=== PATIENT | female | born 1960 | race Caucasian/White ===

== ENCOUNTER 2019-09-14 15:29 | Outpatient (CLI) | payer MEDICARE, MEDICAID, SELFPAY ==
[2019-09-14 18:59] LABS: Thyroid Stimulating Hormone 2.96 uIU/mL (0.27-4.20)
== END 2019-09-14 15:30 | disposition home or self-care (01) ==
LOC: LAB 15:38
PROVIDERS: Family Provider Internal Medicine; PCP Internal Medicine; Visit Provider Internal Medicine
DX: E03.9 Hypothyroidism, unspecified (principal)
CPT/HCPCS: 36415; 84443

== ENCOUNTER → 2019-09-29 09:55 | Outpatient (BNVA) | payer MEDICARE, MEDICAID, SELFPAY | PROVIDERS: Family Provider Internal Medicine; PCP Internal Medicine; Visit Provider Nurse Practitioner Psychiatric/Mental Health | DX: F41.1 Generalized anxiety disorder (principal); F33.1 Major depressive disorder, recurrent, moderate; F43.12 Post-traumatic stress disorder, chronic; F60.89 Other specific personality disorders | CPT/HCPCS: 99214 ==

== ENCOUNTER → 2019-11-07 08:45 | Outpatient (BNVA) | payer MEDICARE, MEDICAID, SELFPAY | PROVIDERS: Family Provider Internal Medicine; PCP Internal Medicine; Visit Provider Nurse Practitioner Psychiatric/Mental Health | DX: F41.1 Generalized anxiety disorder (principal); F33.1 Major depressive disorder, recurrent, moderate; F43.12 Post-traumatic stress disorder, chronic; F60.89 Other specific personality disorders | CPT/HCPCS: 99214 ==

== ENCOUNTER → 2019-11-29 12:06 | Outpatient (BNVA) | payer MEDICARE, MEDICAID, SELFPAY | PROVIDERS: Family Provider Internal Medicine; PCP Internal Medicine; Visit Provider Family Medicine | DX: R05 Cough (principal); R06.02 Shortness of breath; R50.81 Fever presenting with conditions classified elsewhere; Z20.828 Contact with and (suspected) exposure to other viral communicable diseases; R68.89 Other general symptoms and signs | CPT/HCPCS: 87071; 87400; 87635; 87880 ==

== ENCOUNTER → 2020-01-03 07:43 | Outpatient (BNVA) | payer MEDICARE, MEDICAID, SELFPAY | PROVIDERS: Family Provider Internal Medicine; PCP Internal Medicine; Visit Provider Nurse Practitioner Psychiatric/Mental Health | DX: F41.1 Generalized anxiety disorder (principal); F33.1 Major depressive disorder, recurrent, moderate; F43.12 Post-traumatic stress disorder, chronic; F60.89 Other specific personality disorders | CPT/HCPCS: 99213 ==

== ENCOUNTER → 2020-04-03 08:21 | Outpatient (BNVA) | payer MEDICARE, MEDICAID, SELFPAY | PROVIDERS: Family Provider Internal Medicine; PCP Internal Medicine; Visit Provider Nurse Practitioner Psychiatric/Mental Health | DX: F41.1 Generalized anxiety disorder (principal); F33.1 Major depressive disorder, recurrent, moderate; F43.12 Post-traumatic stress disorder, chronic; F60.89 Other specific personality disorders | CPT/HCPCS: 99213 ==

== ENCOUNTER → 2020-06-26 07:49 | Outpatient (BNVA) | payer MEDICARE, MEDICAID, SELFPAY | PROVIDERS: Family Provider Internal Medicine; PCP Internal Medicine; Visit Provider Nurse Practitioner Psychiatric/Mental Health | DX: F41.1 Generalized anxiety disorder (principal); F33.1 Major depressive disorder, recurrent, moderate; F43.12 Post-traumatic stress disorder, chronic; F60.89 Other specific personality disorders | CPT/HCPCS: 87635; 99214 ==

== ENCOUNTER → 2020-06-30 15:11 | Outpatient (BNVA) | payer MEDICARE, MEDICAID, SELFPAY | PROVIDERS: Family Provider Internal Medicine; PCP Internal Medicine; Visit Provider Nurse Practitioner | DX: J20.9 Acute bronchitis, unspecified (principal) | CPT/HCPCS: 71046; 87071; 87880 ==

== ENCOUNTER → 2020-07-02 10:35 | Outpatient (BNVA) | payer MEDICARE, MEDICAID, SELFPAY | PROVIDERS: Family Provider Internal Medicine; PCP Internal Medicine; Visit Provider Family Medicine | DX: E03.9 Hypothyroidism, unspecified (principal); F41.1 Generalized anxiety disorder; Z13.6 Encounter for screening for cardiovascular disorders; Z79.899 Other long term (current) drug therapy | CPT/HCPCS: 80053; 80061; 83036; 84443; 85025 ==

== ENCOUNTER → 2020-07-24 08:00 | Outpatient (BNVA) | payer MEDICARE, MEDICAID, SELFPAY ==
[2020-07-03 14:30] VITALS: BP 121/83; BMI 33.6
== END ==
PROVIDERS: Family Provider Internal Medicine; PCP Family Medicine; Visit Provider Nurse Practitioner Psychiatric/Mental Health
DX: F41.1 Generalized anxiety disorder (principal); F33.1 Major depressive disorder, recurrent, moderate; F43.12 Post-traumatic stress disorder, chronic; F60.89 Other specific personality disorders
CPT/HCPCS: 99213

== ENCOUNTER → 2020-08-15 11:39 | Outpatient (BNVA) | payer MEDICARE, MEDICAID, SELFPAY ==
[2020-07-03 14:30] VITALS: BP 121/83; BMI 33.6
== END ==
PROVIDERS: Family Provider Internal Medicine; PCP Family Medicine; Visit Provider Family Medicine
DX: E03.9 Hypothyroidism, unspecified (principal); G47.10 Hypersomnia, unspecified
CPT/HCPCS: 84443

== ENCOUNTER 2020-08-28 20:00 | Outpatient (CLI) | payer MEDICARE, MEDICAID, SELFPAY ==
[2020-07-03 14:30] VITALS: BP 121/83; BMI 33.6
== END 2020-08-28 20:01 | disposition home or self-care (01) ==
LOC: SLEEP 08-29 10:09
PROVIDERS: Family Provider Internal Medicine; PCP Family Medicine; Visit Provider Family Medicine
DX: G47.10 Hypersomnia, unspecified (principal); R06.83 Snoring; R53.83 Other fatigue; G47.33 Obstructive sleep apnea (adult) (pediatric)
CPT/HCPCS: 95810

== ENCOUNTER → 2020-09-04 08:07 | Outpatient (BNVA) | payer MEDICARE, MEDICAID, SELFPAY ==
[2020-07-03 14:30] VITALS: BP 121/83; BMI 33.6
== END ==
PROVIDERS: Family Provider Internal Medicine; PCP Family Medicine; Visit Provider Nurse Practitioner Psychiatric/Mental Health
DX: F41.1 Generalized anxiety disorder (principal); F33.1 Major depressive disorder, recurrent, moderate; F43.12 Post-traumatic stress disorder, chronic; F60.89 Other specific personality disorders
CPT/HCPCS: 99213

== ENCOUNTER 2020-09-24 13:14 | Outpatient (CLI) | payer MEDICARE, MEDICAID, SELFPAY ==
[2020-07-03 14:30] VITALS: BP 121/83; BMI 33.6
--- NOTE | 2020-09-24 13:30 | MM_ITS ---
WS: [id number] SCREENING DIGITAL MAMMOGRAM WITH CAD HISTORY: screening mammogram COMPARISON: 04/19/2008 Bilateral CC and MLO views submitted. Computer aided detection analyzed. Breast composition: There are scattered areas of fibroglandular density. No suspicious masses, microc alcifications or architectural distortion. MM/[place] [id number] IMPRESSION: BI-RADS: 1-Negative FOLLOW UP: 1 Year Follow-up
== END 2020-09-24 13:15 | disposition home or self-care (01) ==
LOC: RADSHAW 13:17
PROVIDERS: PCP Family Medicine; Visit Provider Family Medicine
DX: Z12.31 Encounter for screening mammogram for malignant neoplasm of breast (principal)
CPT/HCPCS: 77067

== ENCOUNTER → 2020-10-30 07:54 | Outpatient (BNVA) | payer MEDICARE, MEDICAID, SELFPAY ==
[2020-07-03 14:30] VITALS: BP 121/83; BMI 33.6
== END ==
PROVIDERS: PCP Family Medicine; Visit Provider Nurse Practitioner Psychiatric/Mental Health
DX: F41.1 Generalized anxiety disorder (principal); F33.1 Major depressive disorder, recurrent, moderate; F43.12 Post-traumatic stress disorder, chronic; F60.89 Other specific personality disorders
CPT/HCPCS: 99214

== ENCOUNTER → 2020-11-07 11:35 | Outpatient (BNVA) | payer MEDICARE, SELFPAY ==
[2020-07-03 14:30] VITALS: BP 121/83; BMI 33.6
== END ==
PROVIDERS: PCP Family Medicine; Visit Provider Family Medicine
DX: E03.9 Hypothyroidism, unspecified (principal); H81.10 Benign paroxysmal vertigo, unspecified ear; G47.33 Obstructive sleep apnea (adult) (pediatric)
CPT/HCPCS: 84439; 84443

== ENCOUNTER 2020-11-29 20:00 | Outpatient (CLI) | payer MEDICARE, MEDICAID, SELFPAY ==
[2020-07-03 14:30] VITALS: BP 121/83; BMI 33.6
== END 2020-11-29 20:01 | disposition home or self-care (01) ==
LOC: SLEEP 11-30 09:31
PROVIDERS: PCP Family Medicine; Visit Provider Family Medicine
DX: G47.33 Obstructive sleep apnea (adult) (pediatric) (principal)
CPT/HCPCS: 95811

== ENCOUNTER → 2021-01-08 08:24 | Outpatient (BNVA) | payer MEDICARE, MEDICAID, SELFPAY ==
[2020-07-03 14:30] VITALS: BP 121/83; BMI 33.6
== END ==
PROVIDERS: PCP Family Medicine; Visit Provider Nurse Practitioner Psychiatric/Mental Health
DX: F41.1 Generalized anxiety disorder (principal); F33.1 Major depressive disorder, recurrent, moderate; F43.12 Post-traumatic stress disorder, chronic; F60.89 Other specific personality disorders
CPT/HCPCS: 99214

== ENCOUNTER → 2021-01-30 07:56 | Outpatient (BNVA) | payer MEDICARE, MEDICAID, SELFPAY ==
[2020-07-03 14:30] VITALS: BP 121/83; BMI 33.6
== END ==
PROVIDERS: PCP Family Medicine; Visit Provider Social Worker
DX: F41.1 Generalized anxiety disorder (principal); F33.1 Major depressive disorder, recurrent, moderate; F43.12 Post-traumatic stress disorder, chronic; F60.89 Other specific personality disorders
CPT/HCPCS: 90834

== ENCOUNTER → 2021-02-11 13:00 | Outpatient (BNVA) | payer MEDICARE, MEDICAID, SELFPAY ==
[2020-07-03 14:30] VITALS: BP 121/83; BMI 33.6
== END ==
PROVIDERS: PCP Family Medicine; Visit Provider Social Worker
DX: F41.1 Generalized anxiety disorder (principal); F33.1 Major depressive disorder, recurrent, moderate; F43.12 Post-traumatic stress disorder, chronic; F60.89 Other specific personality disorders
CPT/HCPCS: 90834

== ENCOUNTER → 2021-02-12 07:35 | Outpatient (BNVA) | payer MEDICARE, MEDICAID, SELFPAY ==
[2020-07-03 14:30] VITALS: BP 121/83; BMI 33.6
== END ==
PROVIDERS: PCP Family Medicine; Visit Provider Nurse Practitioner Psychiatric/Mental Health
DX: E03.9 Hypothyroidism, unspecified (principal); F60.89 Other specific personality disorders; F41.1 Generalized anxiety disorder; F33.1 Major depressive disorder, recurrent, moderate; F43.12 Post-traumatic stress disorder, chronic
CPT/HCPCS: 99214; 84439; 84443

== ENCOUNTER → 2021-02-18 12:37 | Outpatient (BNVA) | payer MEDICARE, MEDICAID, SELFPAY ==
[2020-07-03 14:30] VITALS: BP 121/83; BMI 33.6
== END ==
PROVIDERS: PCP Family Medicine; Visit Provider Social Worker
DX: F41.1 Generalized anxiety disorder (principal); F33.1 Major depressive disorder, recurrent, moderate; F43.12 Post-traumatic stress disorder, chronic; F60.89 Other specific personality disorders
CPT/HCPCS: 90834

== ENCOUNTER → 2021-03-04 08:33 | Outpatient (BNVA) | payer MEDICARE, MEDICAID, SELFPAY ==
[2020-07-03 14:30] VITALS: BP 121/83; BMI 33.6
== END ==
PROVIDERS: PCP Family Medicine; Visit Provider Social Worker
DX: F41.1 Generalized anxiety disorder (principal); F33.1 Major depressive disorder, recurrent, moderate; F43.12 Post-traumatic stress disorder, chronic; F60.89 Other specific personality disorders
CPT/HCPCS: 90834

== ENCOUNTER → 2021-03-13 14:00 | Outpatient (BNVA) | payer MEDICARE, MEDICAID, SELFPAY ==
[2020-07-03 14:30] VITALS: BP 121/83; BMI 33.6
== END ==
PROVIDERS: PCP Family Medicine; Visit Provider Social Worker
DX: F41.1 Generalized anxiety disorder (principal); F33.1 Major depressive disorder, recurrent, moderate; F43.12 Post-traumatic stress disorder, chronic
CPT/HCPCS: 90834

== ENCOUNTER → 2021-03-19 07:24 | Outpatient (BNVA) | payer MEDICARE, MEDICAID, SELFPAY ==
[2020-07-03 14:30] VITALS: BP 121/83; BMI 33.6
== END ==
PROVIDERS: PCP Family Medicine; Visit Provider Nurse Practitioner Psychiatric/Mental Health
DX: F41.1 Generalized anxiety disorder (principal); F33.1 Major depressive disorder, recurrent, moderate; F43.12 Post-traumatic stress disorder, chronic; F60.89 Other specific personality disorders
CPT/HCPCS: 99214

== ENCOUNTER → 2021-04-04 13:50 | Outpatient (BNVA) | payer MEDICARE, MEDICAID, SELFPAY ==
[2020-07-03 14:30] VITALS: BP 121/83; BMI 33.6
== END ==
PROVIDERS: PCP Family Medicine; Visit Provider Family Medicine
DX: E03.9 Hypothyroidism, unspecified (principal); N95.1 Menopausal and female climacteric states
CPT/HCPCS: 84439; 84443

== ENCOUNTER → 2021-04-17 08:56 | Outpatient (BNVA) | payer MEDICARE, MEDICAID, SELFPAY ==
[2020-07-03 14:30] VITALS: BP 121/83; BMI 33.6
== END ==
PROVIDERS: PCP Family Medicine; Visit Provider Social Worker
DX: F41.1 Generalized anxiety disorder (principal); F33.1 Major depressive disorder, recurrent, moderate; F43.12 Post-traumatic stress disorder, chronic; F60.89 Other specific personality disorders
CPT/HCPCS: 90834

== ENCOUNTER → 2021-04-22 12:50 | Outpatient (BNVA) | payer MEDICARE, MEDICAID, SELFPAY ==
[2020-07-03 14:30] VITALS: BP 121/83; BMI 33.6
== END ==
PROVIDERS: PCP Family Medicine; Visit Provider Social Worker
DX: F41.1 Generalized anxiety disorder (principal); F33.1 Major depressive disorder, recurrent, moderate; F43.12 Post-traumatic stress disorder, chronic; F60.89 Other specific personality disorders
CPT/HCPCS: 90834

== ENCOUNTER → 2021-05-08 08:55 | Outpatient (BNVA) | payer MEDICARE, MEDICAID, SELFPAY ==
[2020-07-03 14:30] VITALS: BP 121/83; BMI 33.6
== END ==
PROVIDERS: PCP Family Medicine; Visit Provider Social Worker
DX: F41.1 Generalized anxiety disorder (principal); F33.1 Major depressive disorder, recurrent, moderate; F43.12 Post-traumatic stress disorder, chronic; F60.89 Other specific personality disorders
CPT/HCPCS: 90834

== ENCOUNTER 2021-06-19 11:09 | Emergency (ER) | payer MEDICARE, MEDICAID, SELFPAY ==
[2020-07-03 14:30] VITALS: BP 121/83; BMI 33.6
[2021-06-19 11:15] VITALS: BP 136/78; PULSE 94; RESP 18; TEMP 36.1; O2SAT 96; BMI 34.7
--- NOTE | 2021-06-19 11:24 | XR_ITS ---
WS: [id number] Exam: XR chest 1V portable [id number] Date/Time of Exam: 06/19/2021 11:48 AM Reason For Exam: dyspnea Comparison 06/30/2020. Findings: The lungs are clear and fully expanded. Costophrenic angles are sharp. No infiltrates. Bronchovascula r relief appears normal. Cardiac silhouette is unremarkable. Bony elements are intact. XR/XR chest 1V portable [id number] IMPRESSION: Unremarkable chest radiograph.
--- NOTE | 2021-06-19 11:24 | ECG_ITS ---
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 Measurements Intervals [place] Rate: 89 P: 28 RI: 138 QRS: -18 QRSD: 84 T: 50 QT: 358 QTc: 438 Interpretive Statements SINUS RHYTHM LOW QRS VOLTAGE IN PRECORDIAL LEADS [QRS DEFLECTION < 1.0 mV IN CHEST LEADS] POSSIBLE ANTERIOR MYOCARDIAL INFARCTION , PROBABLY OLD [30 ms Q WAVE IN V3/V4, OR R < 0.2 mV IN V4] Compared to ECG 06/18/2018 13:32:04 Low QRS voltage now present Myocardial infarct finding now present Sinus arrhythmia no longer present Electronically Signed On 06-20-2021 1:24:27 CDT by Rebecca Price M.D. [id number]
--- NOTE | 2021-06-19 11:47 | W.ED.GENADLT ---
HPI - General Adult General: Chief complaint: Chest Pain Stated complaint: CHEST PRESSURE,RAPID HR,WEAK,SOB,PAIN L NECK/ARM Time Seen by Provider: 06/19/21 11:23 History of Present Illness: HPI narrative: CC: Chest Pain HPI: This is a 61yo patient hx of PTD, ЮЛИЯ, and depression presenting to the ED complaining of acute sudden onset intermittent squeezing chest pain since 5am this morning WITHOUT radiation to the back or shoulders . No associated with shortness of breath, chest pain or dyspnea on exertion. Pain is not tearing in nature and does not radiate to the back. Pain not associated with vomiting or PO intake. Denies any recent sympathomimetic drug use. Patient denies any cough. Denies palpitations, dysphagia, diaphoresis, radiation of pain to bilateral arms, jaw. Denies F/N/V/D. Patient denies any recent immobility, surgery, unilateral leg swelling, or prior PE. Patient denies any orthopnea. Hx of prior PE in the past, +mild pleurtiic chest pain. Onset: 5 hrs ago Duration: ongoing for the last 5 hrs Location: home Severity: mild/moderate Review of Systems Narrative: Constitutional: No fever, no chills. HEENT: No vision changes, no sore throat. CV: +chest pain, no palpitations. PULM: No cough, No dyspnea. GI: No abdominal pain, no N/V/D. : No dysuria, no frequency, no hematuria. MSKEL: No arthralgias, no edema. SKIN: No new rashes, no lesions. NEURO: No headache, no focal weakness. HEME: No easy bleeding or bruising. PSYCH: No change in mood or affect. PFSH ED PFSH: Medical History Chronic post-traumatic stress disorder Cluster B personality disorder Generalized anxiety disorder Hypothyroidism Major depressive disorder, recurrent episode, moderate with anxious distress Psychiatric care TMJ (dislocation of temporomandibular joint) Surgical History H/O rhinoplasty History of appendectomy History of cholecystectomy History of partial hysterectomy Hx of breast reduction, elective Family History Father Hypertension Hyperlipidemia Cancer Sister Hyperlipidemia Grandmother Cancer Grandfather Cancer Social History Smoking and tobacco status: never smoked Alcohol intake: current Marital status: Current gender identity: Female Physical Exam Narrative: EXAM NARRATIVE: Head: Atraumatic, normocephalic Eyes: PERRL, EOMI, conjunctiva without injection ENT: Throat without erythema, lesions or exudate, MMM NECK: Supple, trachea midline, no JVD LUNGS: LCTA CV: RRR, S1,S2, no murmurs, rubs, gallops. 2+ peripheral pulses in UEs ABDOMEN: Soft, nontender, nondistended, BS x4, no rigidity, no guarding, no rebound EXTREMITY: Normal ROM, no pitting edema, no calf tenderness to palpation SKIN: No rash or erythema NEURO: Awake and alert. No focal motor deficits. PSYCH: Normal mood and affect. Course Vital Signs: Vital signs: Vital Signs Temperature 97.0 F L 06/19/21 11:15 Pulse Rate 84 06/19/21 12:58 Respiratory Rate 18 06/19/21 11:15 Blood Pressure 176/103 06/19/21 12:58 Pulse Oximetry 94 06/19/21 12:58 MDM - General Adult MDM Narrative: Medical decision making narrative: [61]yo patient w/ hx of ЮЛИЯ, PTSD, depression presenting to the ED with evaluation of new onset squeezing chest pain x 5 hrs. HDS, pulse 2+ radially bilaterally, no signs of fluid overload, AAOx3, neuro exam intact. Given History and Exam today I have no suspicion for ACS, Pneumothorax, Pneumonia, Pulmonary Embolus, Tamponade, Aortic Dissection or other emergent problems as a cause for this presentation. Workup: ECG, CXR, CBC, BMP, Troponin x 2 Interventions: ASA Findings: ECG: No overt evidence of STEMI, hyperacute T waves, localizable STD or T wave inversions. No evidence of Brugada?s sign, delta wave, epsilon wave, significantly prolonged QTc, or malignant arrhythmia. No Q waves. Other Labs unremarkable for emergent problems. CXR: Without PTX, PNA, or widened mediastinum Last Stress Test: never Last Heart Catheterization: never HEART Score: 1 (age) Dimer: wnl [13:30] On reassessment, the patient is HDS, no complaints of persistent chest pain in the ED after evaluation. ECG is non-ischemic. Workup today is unremarkable. Doubt ACS/PE or other emergent causes of chest pain. I have given patient follow up with our sample case porter to be seen by our outpatient PCP for management of chest pain and further evaluation. Patient aware of a call from our sample case porter to schedule for appointment(s) and verbalizes understanding of the importance of following up. Doubt ACS/PE or other emergent causes of chest pain. No suspicion for aortic dissection given no widened mediastinum, 2+ upper extremity pulses, or tearing pain. No suspicion for PE given no pleuritic chest pain, recent immobilization or surgery hemoptysis, or other VTE risk factors. EKG is non-ischemic. XR normal. Rx: Tylenol PRN pain Disposition: Discharge. Strict return precautions discussed with the patient with full understanding. Advised patient to follow up promptly with a primary care provider in 24-48 hrs if the patient has persistent symptoms. Given return instructions for any crushing/tearing chest pain, focal weakness, syncope or any new or concerning issues. Lab Data: Labs: Lab Results 06/19/21 06/19/21 06/19/21 11:46 11:46 11:46 WBC 8.4 10^3/uL 10^3/ uL (4.0-10.0) RBC 5.08 10^6/uL 10^6 /uL (4.1-5.3) Hgb 13.3 g/dL g/dL (11.5-15.3) Hct 42.3 % % (37.0-47.0) MCV 83.3 fl fl (81-99) MCH 26.2 pg L pg (28.0-34.0) MCHC 31.4 g/dL g/dL (30.0-36.0) RDW 14.4 % % (12.1-15.1) Plt Count 291 10^3/cmm 10^3 /cmm (130-400) MPV 11.0 fL H fL (7.4-10.4) Neut % (Auto) 61.9 % % Lymph % (Auto) 28.2 % % [place] % (Auto) 6.6 % % Eos % (Auto) 2.2 % % Baso % (Auto) 0.7 % % Neut # (Auto) 5.18 10^3/uL 10^3 /uL (1.8-7.7) Lymph # (Auto) 2.4 10^3/uL 10^3/ uL (0.8-4.8) [place] # (Auto) 0.6 10^3/uL 10^3/ uL (0.2-0.9) Eos # (Auto) 0.2 10^3/uL 10^3/ uL (0.0-0.8) Baso # (Auto) 0.1 10^3/uL 10^3/ uL (0.0-0.1) Nucleated RBC % (a uto) 0 % % Nucleated RBCs # 0.0 /100WBC /100W BC D-Dimer Sodium 133 mmol/L L mmol /L (136-145) Potassium 3.7 mmol/L mmol/L (3.5-5.1) Chloride 100 mmol/L mmol/L (98-107) Carbon Dioxide 20 mmol/L L mmol/ L (22-29) Anion Gap 16.7 (5-19) BUN 13 mg/dL mg/dL (8-23) Creatinine 0.8 mg/dL mg/dL (0.5-0.9) GFR Calculation 72.9 mL/min L mL/ min (90-130) Glucose 208 mg/dL H mg/dL (65-115) Calculated Osmolal ity 282 mOsm/kg L mOs m/kg (285-295) Calcium 9.0 mg/dL mg/dL (8.5-10.5) Troponin T Baselin e 7 ng/L ng/L (0-10) Troponin T 120 Min [place] Delta Troponin T 06/19/21 06/19/21 12:18 13:33 WBC RBC Hgb Hct MCV MCH MCHC RDW Plt Count MPV Neut % (Auto) Lymph % (Auto) [place] % (Auto) Eos % (Auto) Baso % (Auto) Neut # (Auto) Lymph # (Auto) [place] # (Auto) Eos # (Auto) Baso # (Auto) Nucleated RBC % (a uto) Nucleated RBCs # D-Dimer 0.43 ug/mIFEU ug/ mIFEU (0-0.59) Sodium Potassium Chloride Carbon Dioxide Anion Gap BUN Creatinine GFR Calculation Glucose Calculated Osmolal ity Calcium Troponin T Baselin e Troponin T 120 Min [place] 6.84 ng/L ng/L (0-10) Delta Troponin T -0.16 ABS# L ABS# (0-10) Discharge Plan Discharge Patient Disposition: Home Clinical Impression: Chest pain Condition: Stable Prescriptions: New acetaminophen 500 mg tablet 500 mg PO Q6H PRN (Reason: pain) 3 Days Qty: 12 RF: 0 No Action venlafaxine [Effexor XR] 150 mg capsule,extended release 24hr 150 mg PO QAM Qty: 30 RF: 6 hydroxyzine HCl 50 mg tablet 50 mg PO BID PRN (Reason: itching) Qty: 60 RF: 3 (DME) BIPAP See Rx Instructions .Route .MEDSUPPLY Qty: 1 RF: 0 ibuprofen 800 mg tablet 800 mg PO Q8H PRN (Reason: fever or pain) Qty: 90 RF: 0 venlafaxine [Effexor XR] 75 mg capsule,extended release 24hr 75 mg PO QAM Qty: 30 RF: 3 pantoprazole [Protonix] 40 mg tablet,delayed release (DR/EC) 40 mg PO BID Qty: 60 RF: 3 levothyroxine 75 mcg tablet 75 mcg PO QAM RF: 0 albuterol sulfate 90 mcg/actuation HFA aerosol inhaler 2 puff INHALATION QID PRN (Reason: Shortness Of Breath) RF: 0 [place] Tabs 1 tab PO BID RF: 0 trazodone 100 mg tablet 100 mg PO BEDTIME PRN (Reason: sleep) RF: 0 Discharge Orders: Discharge ED (Routine); Ordered 06/19/21 Ordered By: Tiki Black Referrals: Linnea Cr DO [Primary Care Provider] - Patient Instructions: Chest Pain (ED) Activity Restrictions/Additional Instructions: Come back to the emergency room if your chest pain worsens, if any fever or chills, if you have any nausea vomiting, any new or concerning complaints. Coding Level of Care Code ED Alarm Signal Operator for Justin Gutierrez
[2021-06-19 12:01] LABS: Basophils # 0.1 10^3/uL (0.0-0.1); Basophils % 0.7 %; Eosinophils # 0.2 10^3/uL (0.0-0.8); Eosinophils % 2.2 %; Hematocrit 42.3 % (37.0-47.0); Hemoglobin 13.3 g/dL (11.5-15.3); Lymphocytes # 2.4 10^3/uL (0.8-4.8); Lymphocytes % 28.2 %; Mean Corpuscular HGB Conc 31.4 g/dL (30.0-36.0); Mean Corpuscular Hemoglobin 26.2 pg (28.0-34.0); Mean Corpuscular Volume 83.3 fl (81-99); Monocytes # 0.6 10^3/uL (0.2-0.9); Monocytes % 6.6 %; Neutrophils # 5.18 10^3/uL (1.8-7.7); Neutrophils % 61.9 %; Nucleated Red Blood Cells % 0 %; Platelet Count 291 10^3/cmm (130-400); Red Blood Count 5.08 10^6/uL (4.1-5.3); Red Cell Distribution Width 14.4 % (12.1-15.1); White Blood Count 8.4 10^3/uL (4.0-10.0)
[2021-06-19] MEDS: aspirin 325 mg Tablet PO (12:07)
[2021-06-19 12:27] LABS: Troponin(5th) Baseline 7 ng/L (0-10)
[2021-06-19 12:31] LABS: Anion Gap 16.7 (5-19); Blood Urea Nitrogen 13 mg/dL (8-23); Carbon Dioxide 20 mmol/L (22-29); Chloride 100 mmol/L (98-107); Glomerular Filtration Rate 72.9 mL/min (90-130); Glucose 208 mg/dL (65-115); Osmolality Calculated 282 mOsm/kg (285-295); Potassium 3.7 mmol/L (3.5-5.1); Sodium 133 mmol/L (136-145)
[2021-06-19 12:57] LABS: D Dimer 0.43 ug/mIFEU (0-0.59)
[2021-06-19 12:58] VITALS: BP 176/103; PULSE 84; O2SAT 94
--- NOTE | 2021-06-19 13:24 | ECG_ITS ---
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 Measurements Intervals [place] Rate: 63 P: 33 MS: 145 QRS: -9 QRSD: 98 T: 32 QT: 395 QTc: 405 Interpretive Statements SINUS RHYTHM LOW QRS VOLTAGE IN PRECORDIAL LEADS [QRS DEFLECTION < 1.0 mV IN CHEST LEADS] Nonspecific T wave changes POSSIBLE ANTERIOR MYOCARDIAL INFARCTION , OF INDETERMINATE AGE [30 ms Q WAVE IN V3/V4, OR R < 0.2 mV IN V4] Compared to ECG 06/19/2021 11:28:47 No significant changes Electronically Signed On 06-20-2021 1:28:33 CDT by Rebecca Price M.D. [email or web address]/store/[id number]
[2021-06-19 14:11] LABS: Troponin 5 2HR 6.84 ng/L (0-10)
[2021-06-19 14:18] LABS: Troponin 5 2HR Delta -0.16 ABS# (0-10)
--- NOTE | 2021-06-19 14:47 | PC.NURSE ---
EPI PULLED D/T POSS RISK OF ALLERGIC REACTION, NOT USED, RETURNED TO PHARM BOX
== END 2021-06-19 14:46 | disposition home or self-care (01) ==
PROVIDERS: Emergency Provider Emergency Medicine; PCP Family Medicine
DX: R07.89 Other chest pain (principal); E03.9 Hypothyroidism, unspecified; F43.12 Post-traumatic stress disorder, chronic; F41.1 Generalized anxiety disorder
CPT/HCPCS: 71045; 80048; 84484; 85025; 85378; 93005; 99283

== ENCOUNTER → 2021-07-12 08:09 | Outpatient (BNVA) | payer MEDICARE, MEDICAID, SELFPAY ==
[2020-07-03 14:30] VITALS: BP 121/83; BMI 33.6
== END ==
PROVIDERS: PCP Family Medicine; Visit Provider Nurse Practitioner Psychiatric/Mental Health
DX: F60.89 Other specific personality disorders (principal); F41.1 Generalized anxiety disorder; F33.1 Major depressive disorder, recurrent, moderate; F43.12 Post-traumatic stress disorder, chronic
CPT/HCPCS: 99214

== ENCOUNTER → 2021-07-23 11:27 | Outpatient (BNVA) | payer MEDICARE, MEDICAID, SELFPAY ==
[2020-07-03 14:30] VITALS: BP 121/83; BMI 33.6
== END ==
PROVIDERS: PCP Family Medicine; Visit Provider Social Worker
DX: F41.1 Generalized anxiety disorder (principal); F33.1 Major depressive disorder, recurrent, moderate; F43.12 Post-traumatic stress disorder, chronic; F60.89 Other specific personality disorders
CPT/HCPCS: 90837; 90834

== ENCOUNTER → 2021-08-20 08:11 | Outpatient (BNVA) | payer MEDICARE, MEDICAID, SELFPAY ==
[2020-07-03 14:30] VITALS: BP 121/83; BMI 33.6
== END ==
PROVIDERS: PCP Family Medicine; Visit Provider Nurse Practitioner Psychiatric/Mental Health
DX: F33.1 Major depressive disorder, recurrent, moderate (principal); F60.89 Other specific personality disorders; F41.1 Generalized anxiety disorder; F43.12 Post-traumatic stress disorder, chronic
CPT/HCPCS: 99214

== ENCOUNTER → 2021-09-20 08:02 | Outpatient (BNVA) | payer MEDICARE, MEDICAID, SELFPAY ==
[2020-07-03 14:30] VITALS: BP 121/83; BMI 33.6
== END ==
PROVIDERS: PCP Family Medicine; Visit Provider Social Worker
DX: F43.12 Post-traumatic stress disorder, chronic (principal); F33.1 Major depressive disorder, recurrent, moderate; F41.1 Generalized anxiety disorder
CPT/HCPCS: 90837; 90834

== ENCOUNTER → 2021-10-15 07:27 | Outpatient (BNVA) | payer MEDICARE, MEDICAID, SELFPAY ==
[2020-07-03 14:30] VITALS: BP 121/83; BMI 33.6
== END ==
PROVIDERS: PCP Family Medicine; Visit Provider Nurse Practitioner Psychiatric/Mental Health
DX: F33.1 Major depressive disorder, recurrent, moderate (principal); F60.89 Other specific personality disorders; F41.1 Generalized anxiety disorder; F43.12 Post-traumatic stress disorder, chronic
CPT/HCPCS: 99214

== ENCOUNTER → 2021-11-13 09:27 | Outpatient (BNVA) | payer MEDICARE, MEDICAID, SELFPAY ==
[2020-07-03 14:30] VITALS: BP 121/83; BMI 33.6
== END ==
PROVIDERS: PCP Family Medicine; Visit Provider Social Worker
DX: F43.12 Post-traumatic stress disorder, chronic (principal); F33.1 Major depressive disorder, recurrent, moderate; F41.1 Generalized anxiety disorder
CPT/HCPCS: 90834

== ENCOUNTER → 2021-11-19 07:30 | Outpatient (BNVA) | payer MEDICARE, MEDICAID, SELFPAY ==
[2020-07-03 14:30] VITALS: BP 121/83; BMI 33.6
== END ==
PROVIDERS: PCP Family Medicine; Visit Provider Nurse Practitioner Psychiatric/Mental Health
DX: F33.1 Major depressive disorder, recurrent, moderate (principal); F60.89 Other specific personality disorders; F41.1 Generalized anxiety disorder; F43.12 Post-traumatic stress disorder, chronic; Z79.899 Other long term (current) drug therapy
CPT/HCPCS: 99214

== ENCOUNTER → 2021-11-21 10:10 | Outpatient (BNVA) | payer MEDICARE, MEDICAID, SELFPAY ==
[2020-07-03 14:30] VITALS: BP 121/83; BMI 33.6
== END ==
PROVIDERS: PCP Family Medicine; Visit Provider Nurse Practitioner Psychiatric/Mental Health
DX: Z79.899 Other long term (current) drug therapy (principal)
CPT/HCPCS: 80053; 80061; 82306; 83036; 84439; 84443; 85025

== ENCOUNTER → 2021-11-26 09:23 | Outpatient (BNVA) | payer MEDICARE, MEDICAID, SELFPAY ==
[2020-07-03 14:30] VITALS: BP 121/83; BMI 33.6
== END ==
PROVIDERS: PCP Family Medicine; Visit Provider Social Worker
DX: F43.12 Post-traumatic stress disorder, chronic (principal); F33.1 Major depressive disorder, recurrent, moderate; F41.1 Generalized anxiety disorder; F60.89 Other specific personality disorders
CPT/HCPCS: 90837; 90834

== ENCOUNTER → 2022-01-07 11:26 | Outpatient (BNVA) | payer MEDICARE, MEDICAID, SELFPAY ==
[2020-07-03 14:30] VITALS: BP 121/83; BMI 33.6
== END ==
PROVIDERS: PCP Family Medicine; Visit Provider Social Worker
DX: F43.12 Post-traumatic stress disorder, chronic (principal); F33.1 Major depressive disorder, recurrent, moderate; F41.1 Generalized anxiety disorder; F60.89 Other specific personality disorders
CPT/HCPCS: 90837; 90834

== ENCOUNTER 2022-03-04 08:14 | Emergency (ER) | payer MEDICARE, MEDICAID, SELFPAY ==
[2020-07-03 14:30] VITALS: BP 121/83; BMI 33.6
[2022-03-04] VITALS (7 sets, daily range): BP systolic 125–140; BP diastolic 85–94; PULSE 99–108; RESP 16; TEMP 38; O2SAT 91–95; BMI 35.6
--- NOTE | 2022-03-04 08:17 | XR_ITS ---
WS: [id number] PORTABLE CHEST HISTORY: dyspnea/cough COMPARISON: 06/19/2021 Lungs are clear and well expanded. No pleural effusion or pneumothorax. Cardiac size: Normal. Mediastinum/Aorta: Normal mediastinum. No osseous abnormality seen. XR/XR chest 1V portable [id number] IMPRESSION: Unremarkable portable chest.
--- NOTE | 2022-03-04 08:22 | ED_ITS ---
HPI - URI/Sore Throat General: Chief Complaint: Nausea/Vomiting/Diarrhea Stated Complaint: Flu like symptoms Time Seen by Provider: 03/04/22 08:15 Source: patient Mode of arrival: EMS History of Present Illness: 61-year-old female presents emergency room complaining of 2 to 3 days of flulike symptoms myalgias sore throat diarrhea and nonproductive cough. No chest pain patient has no history of any chronic respiratory illnesses she states she had a positive COVID test in June 2021 and at a clinic and then a positive home test in September 2021. She has not been vaccinated previously. Patient is also reporting some left-sided flank pain denies any dysuria hematuria MD elicited complaint: fever, cough and sore throat Onset (ago): day(s) (2) Consistency: constant Severity: moderate Description of mucous: clear Able to tolerate fluids by mouth: Yes Exacerbating factors: speaking Relieving factors: rest Associated symptoms: Reports congestion, cough, diarrhea, fever(s), nasal congestion, nausea, rhinorrhea, short of breath and sore throat; Deny abdominal pain, change in voice, chills, chest pain, epistaxis, ear or mastoid pain, headache(s), myalgias, rash, sinus pain, stiffness or vomiting Treatments prior to arrival: none Review of Systems Const: Reports: fever(s); Denies: chills, fatigue or malaise ENMT: Reports: throat pain and nasal congestion; Denies: ear or mastoid pain, epistaxis or sinus pain Card: Denies: chest pain Resp: Denies: dyspnea, productive cough or non-productive cough GI: Reports: nausea and diarrhea; Denies: abdominal pain or vomiting : Reports: flank pain; Denies: difficulty voiding, dysuria, urinary frequency or urinary urgency Skin/Breast: Denies: rash or pruritus Neuro: Denies: headache(s) PFSH ED PFSH: Medical History Chronic post-traumatic stress disorder Cluster B personality disorder Generalized anxiety disorder Hypothyroidism Major depressive disorder, recurrent episode, moderate with anxious distress Patient has history of poor historian, changing her mood symptoms with different providers. Patient has a strong personality disorder/attention seeking component to her presentation making it difficult to separate from a true mood disorder. Psychiatric care TMJ (dislocation of temporomandibular joint) Surgical History H/O rhinoplasty History of appendectomy History of cholecystectomy History of partial hysterectomy Hx of breast reduction, elective Family History Father Hypertension Hyperlipidemia Cancer Sister Hyperlipidemia Grandmother Cancer Grandfather Cancer Social History Smoking and tobacco status: never smoked Alcohol intake: current Marital status: Current gender identity: Female Physical Exam Const: COMMON NORMALS: no acute distress GENERAL APPEARANCE: cooperative and comfortable ORIENTATION/CONSCIOUSNESS: Yes awake, Yes oriented to person, Yes oriented to place and Yes oriented to time HENMT: COMMON NORMALS: normocephalic, atraumatic and hearing grossly normal bilaterally HEAD & SCALP: normocephalic and atraumatic Neck/C-Spine: COMMON NORMALS: no JVD Resp: COMMON NORMALS: normal respiratory effort, No retractions and No use of accessory muscles AUSCULTATION: wheezes (Scant expiratory wheeze) Cardio: COMMON NORMALS: no JVD, regular rate, regular rhythm and No murmurs present (Cardio) RATE: regular rate RHYTHM: regular rhythm GI: COMMON NORMALS: Soft to palpation and No hepatosplenomegaly present AUSCULTATION: Yes normoactive bowel sounds PALPATION: Yes Soft to palpation, No Tenderness to palpation present (GI), No Guarding due to palpation present (GI) and Yes No hepatosplenomegaly present Extremity: COMMON NORMALS: normal to inspection, capillary refill normal, no clubbing, cyanosis or edema, no calf tenderness and no pedal edema Neuro: SENSORIUM/ORIENTATION: Yes oriented to person, Yes oriented to place and Yes oriented to time Skin: COMMON NORMALS: no rashes or lesions noted GENERAL SKIN EXAM: no rashes or lesions noted Course Vital Signs: Vital signs: Vital Signs Temperature 100.4 F H 03/04/22 08:32 Pulse Rate 99 03/04/22 10:36 Respiratory Rate 16 03/04/22 08:32 Blood Pressure 140/94 03/04/22 10:36 Pulse Oximetry 93 03/04/22 10:36 MDM - URI/Sore Throat Medical Decision Making Labs and imaging reviewed. Unfortunately we are not able to do in-house PCR for COVID testing. Patient stable at this time will discharge home contact her with the results return if she has worse problems. Medical Records I reviewed the patient's medical records. Lab Data I reviewed the patient's lab results. : 03/04/22 07:31 03/04/22 07:31 Radiology Impressions Chest X-Ray 03/04/22 08:17 IMPRESSION: Unremarkable portable chest. Gallbladder Ultrasound 03/04/22 08:58 IMPRESSION: 1. Status post cholecystectomy. 2. Study compromised by body habitus. 3. Normal size liver with hepatic steatosis. Laboratory Results WBC 11.2 10^3/uL (4.0-10.0) H 03/04/22 07:31 RBC 5.23 10^6/uL (4.1-5.3) 03/04/22 07:31 Hgb 13.9 g/dL (11.5-15.3) 03/04/22 07:31 Hct 41.7 % (37.0-47.0) 03/04/22 07:31 MCV 79.7 fl (81-99) L 03/04/22 07:31 MCH 26.6 pg (28.0-34.0) L 03/04/22 07:31 MCHC 33.3 g/dL (30.0-36.0) 03/04/22 07:31 RDW 14.7 % (12.1-15.1) 03/04/22 07:31 Plt Count 246 10^3/cmm (130-400) 03/04/22 07:31 MPV 12.6 fL (7.4-10.4) H 03/04/22 07:31 Neut % (Auto) 75.2 % 03/04/22 07:31 Lymph % (Auto) 12.9 % 03/04/22 07:31 [place] % (Auto) 10.5 % 03/04/22 07:31 Eos % (Auto) 0.4 % 03/04/22 07:31 Baso % (Auto) 0.4 % 03/04/22 07:31 Neut # (Auto) 8.43 10^3/uL (1.8-7.7) H 03/04/22 07:31 Lymph # (Auto) 1.5 10^3/uL (0.8-4.8) 03/04/22 07:31 [place] # (Auto) 1.2 10^3/uL (0.2-0.9) H 03/04/22 07:31 Eos # (Auto) 0.0 10^3/uL (0.0-0.8) 03/04/22 07:31 Baso # (Auto) 0.1 10^3/uL (0.0-0.1) 03/04/22 07:31 Nucleated RBC % (auto) 0 % 03/04/22 07:31 Nucleated RBCs # 0.0 /100WBC 03/04/22 07:31 Sodium 137 mmol/L (136-145) 03/04/22 07:31 Potassium 4.4 mmol/L (3.5-5.1) 03/04/22 07:31 Chloride 100 mmol/L (98-107) 03/04/22 07:31 Carbon Dioxide 19 mmol/L (22-29) L 03/04/22 07:31 Anion Gap 22.4 (5-19) H 03/04/22 07:31 BUN 9 mg/dL (8-23) 03/04/22 07:31 Creatinine 1.0 mg/dL (0.5-0.9) H 03/04/22 07:31 GFR Calculation 56.4 mL/min (90-130) L 03/04/22 07:31 Glucose 204 mg/dL (65-115) H 03/04/22 07:31 Calculated Osmolality 289 mOsm/kg (285-295) 03/04/22 07:31 Calcium 8.7 mg/dL (8.5-10.5) 03/04/22 07:31 Total Bilirubin 0.4 mg/dL (0.15-1.2) 03/04/22 07:31 AST 71 U/L (0-32) H 03/04/22 07:31 ALT 78 U/L (0-33) H 03/04/22 07:31 Alkaline Phosphatase 123 IU/L (35-105) H 03/04/22 07:31 Total Protein 7.7 g/dL (6.6-8.7) 03/04/22 07:31 Albumin 4.3 g/dL (3.5-5.2) 03/04/22 07:31 Globulin 3.4 g/dL (1.3-4.6) 03/04/22 07:31 Urine Color Yellow (Yellow) 03/04/22 09:06 Urine Appearance Clear (CLEAR) 03/04/22 09:06 Urine pH 5 (5-7) 03/04/22 09:06 Ur Specific [place] 1.010 (1.005-1.030) 03/04/22 09:06 Urine Protein Neg (Negative) 03/04/22 09:06 Urine Glucose (UA) Norm (Normal) 03/04/22 09:06 Urine Ketones Negative (Negative) 03/04/22 09:06 Urine Blood Neg (Negative) 03/04/22 09:06 Urine Nitrate Negative (Negative) 03/04/22 09:06 Urine Bilirubin Neg (Negative) 03/04/22 09:06 Urine Urobilinogen Norm mg/dL (Negative) 03/04/22 09:06 Ur Leukocyte Esterase Negative (Negative) 03/04/22 09:06 Coronavirus 229E (PCR) Cancelled 03/04/22 08:54 SARS-CoV-2 (PCR) Cancelled 03/04/22 08:54 Group A Strep Rapid Negative (Negative) 03/04/22 10:20 Discharge Plan Discharge Patient Disposition: Home Clinical Impression: Viral URI Condition: Stable Prescriptions: New ondansetron HCl 4 mg tablet 4 mg PO Q6H PRN (Reason: nausea and vomiting) Qty: 20 0RF No Action hydroxyzine HCl 50 mg tablet 50 mg PO BID PRN (Reason: itching) Qty: 60 3RF Rx Instructions: pruritis/anxiety (DME) BiPAP mask See Rx Instructions .Route .MEDSUPPLY Qty: 1 0RF Rx Instructions: As directed venlafaxine [Effexor XR] 75 mg capsule,extended release 24hr 75 mg PO QAM Qty: 30 6RF Rx Instructions: WITH 150MG TO =225MG venlafaxine [Effexor XR] 150 mg capsule,extended release 24hr 150 mg PO QAM Qty: 30 6RF Rx Instructions: WITH 75MG TO =225MG trazodone 50 mg tablet 50 mg PO BEDTIME PRN (Reason: sleep) Qty: 30 3RF (DME) BIPAP See Rx Instructions .Route .MEDSUPPLY Qty: 1 0RF Rx Instructions: As directed ibuprofen 800 mg tablet 800 mg PO Q8H PRN (Reason: fever or pain) Qty: 90 0RF Rx Instructions: Take with food pantoprazole [Protonix] 40 mg tablet,delayed release (DR/EC) 40 mg PO BID Qty: 60 3RF levothyroxine 75 mcg tablet 75 mcg PO DAILY 0RF cholecalciferol (vitamin D3) 1,250 mcg (50,000 unit) capsule 50,000 unit PO Q7D 0RF Discharge Orders: Discharge ED (Routine); Ordered 03/04/22 Ordered By: Jovany Quezada Referrals: Linnea Cr DO [Primary Care Provider] - Discharge Diet: Usual diet Discharge Activity: Increase activity as tolerated Patient Instructions: Opioid Safety Activity Restrictions/Additional Instructions: You were tested for COVID-19 today. When the results are available you will be contacted recommend maintaining self quarantine until that time. Tylenol and ibuprofen [id number] cough cold remedies as needed to relieve symptoms. Coding Level of Care Code ED Postal Inspector for Justin Gutierrez
[2022-03-04 08:40] LABS: Basophils # 0.1 10^3/uL (0.0-0.1); Basophils % 0.4 %; Eosinophils % 0.4 %; Hematocrit 41.7 % (37.0-47.0); Hemoglobin 13.9 g/dL (11.5-15.3); Lymphocytes # 1.5 10^3/uL (0.8-4.8); Lymphocytes % 12.9 %; Mean Corpuscular HGB Conc 33.3 g/dL (30.0-36.0); Mean Corpuscular Hemoglobin 26.6 pg (28.0-34.0); Mean Corpuscular Volume 79.7 fl (81-99); Mean Platelet Volume 12.6 fL (7.4-10.4); Monocytes # 1.2 10^3/uL (0.2-0.9); Monocytes % 10.5 %; Neutrophils # 8.43 10^3/uL (1.8-7.7); Neutrophils % 75.2 %; Nucleated Red Blood Cells % 0 %; Platelet Count 246 10^3/cmm (130-400); Red Blood Count 5.23 10^6/uL (4.1-5.3); Red Cell Distribution Width 14.7 % (12.1-15.1); White Blood Count 11.2 10^3/uL (4.0-10.0)
[2022-03-04 08:53] LABS: Alanine Aminotransferase 78 U/L (0-33); Albumin Level 4.3 g/dL (3.5-5.2); Alkaline Phosphatase 123 IU/L (35-105); Blood Urea Nitrogen 9 mg/dL (8-23); Calcium 8.7 mg/dL (8.5-10.5); Carbon Dioxide 19 mmol/L (22-29); Chloride 100 mmol/L (98-107); Globulin 3.4 g/dL (1.3-4.6); Glomerular Filtration Rate 56.4 mL/min (90-130); Glucose 204 mg/dL (65-115); Osmolality Calculated 289 mOsm/kg (285-295); Sodium 137 mmol/L (136-145); Total Bilirubin 0.4 mg/dL (0.15-1.2); Total Protein 7.7 g/dL (6.6-8.7)
[2022-03-04 08:56] LABS: Anion Gap 22.4 (5-19); Aspartate Amino Transferase 71 U/L (0-32); Potassium 4.4 mmol/L (3.5-5.1)
--- NOTE | 2022-03-04 08:58 | US_ITS ---
WS: [id number] RIGHT UPPER QUADRANT ULTRASOUND HISTORY: elevated LFTs COMPARISON: 12/04/2008 Liver: 14.6 cm in length. Normal size liver. Coarsened echotexture. No mass or bile duct dilatation. Portal Vein: Normal hepatopetal flow with monophasic waveform. Gallbladder: Prior cholecystectomy. CBD: 0.4 cm Pancreas: Not visualized. Right kidney: 11.3 cm in length. Normal size and echogenicity. No hydronephrosis or mass. Aorta and IVC: Unremarkable abdominal aorta and IVC. No ascites. US/US gall bladder [id number] IMPRESSION: 1. Status post cholecystectomy. 2. Study compromised by body habitus. 3. Normal size liver with hepatic steatosis.
[2022-03-04 09:30] LABS: Add Urine Microscopic? NO; Charge for UA Resulting for Rev
[2022-03-04 09:35] LABS: Bilirubin Urine Neg (Negative); Blood Urine Neg (Negative); Glucose Urine UA Norm (Normal); Ketones Urine Negative (Negative); Leukocyte Esterase Urine Negative (Negative); Nitrate Urine Negative (Negative); Protein Urine Neg (Negative); Urine Appearance Clear (CLEAR); Urine Color Yellow (Yellow); Urobilinogen Urine Norm (Negative); pH Urine 5 (5-7)
[2022-03-04] MEDS: sodium chloride 0.9% 1,000 ML 999 ML IV (09:37)
[2022-03-04 10:51] LABS: Rapid Strep A Test Negative (Negative)
[2022-03-05 13:42] LABS: Quest SARS-CoV-2 RNA DETECTED (NOT DETECTED)
== END 2022-03-04 10:37 | disposition home or self-care (01) ==
PROVIDERS: Emergency Provider Family Medicine; PCP Family Medicine
DX: U07.1 COVID-19 (principal)
CPT/HCPCS: 71045; 76705; 80053; 81003; 85025; 87081; 87635; 87880; 94760; 99285; J7030

== ENCOUNTER → 2022-05-01 15:33 | Outpatient (BNVA) | payer MEDICARE, MEDICAID, SELFPAY ==
[2020-07-03 14:30] VITALS: BP 121/83; BMI 33.6
== END ==
PROVIDERS: PCP Family Medicine; Visit Provider Family Medicine
DX: E55.9 Vitamin D deficiency, unspecified (principal); R05.3 Chronic cough; R74.01 Elevation of levels of liver transaminase levels
CPT/HCPCS: 80053; 82306; 85025

== ENCOUNTER 2022-05-07 12:59 | Outpatient (CLI) | payer MEDICARE, MEDICAID, SELFPAY ==
[2020-07-03 14:30] VITALS: BP 121/83; BMI 33.6
--- NOTE | 2022-05-07 13:13 | XRR_ITS ---
PROCEDURE INFORMATION: Exam: XR Chest Exam date and time: 05/07/2022 1:20 PM Age: 62 years old Clinical indication: Cough; Prior surgery; Surgery type: Breast reduction; Additional info: Persistent cough TECHNIQUE: Imaging protocol: Radiologic exam of the chest. Views: 2 views. COMPARISON: CR XR chest 1V portable [id number] 03/04/2022 8:48 AM FINDINGS: Lungs: Unremarkable. No consolidation. Pleural spaces: Unremarkable. No pleural effusion. No pneumothorax. Heart/Mediastinum: Unremarkable. No cardiomegaly. A hiatal hernia is present. Bones/joints: Unremarkable. XR/XR chest 2V* [id number] IMPRESSION: 1. No acute findings. 2. Hiatal hernia is present
== END 2022-05-07 13:00 | disposition home or self-care (01) ==
PROVIDERS: PCP Family Medicine; Visit Provider Family Medicine
DX: R05.3 Chronic cough (principal)
CPT/HCPCS: 71046

== ENCOUNTER → 2022-09-08 14:04 | Outpatient (BNVA) | payer MEDICARE, MEDICAID, SELFPAY ==
[2020-07-03 14:30] VITALS: BP 121/83; BMI 33.6
== END ==
PROVIDERS: PCP Family Medicine; Visit Provider Nurse Practitioner Psychiatric/Mental Health
DX: Z79.899 Other long term (current) drug therapy (principal); E55.9 Vitamin D deficiency, unspecified
CPT/HCPCS: 80053; 82306; 82607; 84439; 84443

== ENCOUNTER → 2023-07-28 14:29 | Outpatient (BNVA) | payer MEDICARE, SELFPAY ==
[2020-07-03 14:30] VITALS: BP 121/83; BMI 33.6
== END ==
PROVIDERS: PCP Family Medicine; Visit Provider Family Medicine
DX: Z78.0 Asymptomatic menopausal state (principal); Z13.6 Encounter for screening for cardiovascular disorders; Z11.59 Encounter for screening for other viral diseases; E03.9 Hypothyroidism, unspecified
CPT/HCPCS: 80053; 80061; 84443; 85025; 86803

== ENCOUNTER 2023-09-09 13:45 | Outpatient (CLI) | payer OTHER, SELFPAY ==
[2020-07-03 14:30] VITALS: BP 121/83; BMI 33.6
--- NOTE | 2023-09-09 13:57 | XR_ITS ---
WS: [id number] DEXA (DUAL ENERGY X-RAY ABSORPTIOMETRY) Bone mineral density was performed using a [email or web address] machine. HISTORY: POSTMENOPAUSAL COMPARISON: None available. Lumbar spine BMD (L1-L4): 1.090 g/cm2 T score: -0.8 Z score: 0.2 Total hip BMD: Left: 0.961 g/cm2. T score: -0.4 Z score: 0.4 Right: 0.918 g/cm2. T score: -0.7 Z score: 0.0 10 year probability of a major osteoporotic fracture is 12.6%. IMPRESSION: NORMAL BONE MINERAL DENSITY based upon the WHO classification for females.
--- NOTE | 2023-09-09 14:00 | MM_ITS ---
WS: [id number] BILATERAL 3D TOMOSYNTHESIS DIGITAL SCREENING MAMMOGRAPHY WITH CAD CLINICAL INFORMATION: screening mammogram HISTORY: Screening mammogram. History of bilateral breast reduction COMPARISON: 2020 TECHNIQUE: Bilateral CC and MLO views. FINDINGS: Scattered fibroglandular densities bilaterally. No suspicious focal mass, asymmetry, calcifications, or architectural distortion. No evidence of malignancy. IMPRESSION: MM/[place] [id number] BI-RADS: 1-Negative FOLLOW UP: 1 Year Follow-up Recommend return to annual screening mammography.
== END 2023-09-09 13:46 | disposition home or self-care (01) ==
LOC: RAD 13:49
PROVIDERS: PCP Family Medicine; Visit Provider Family Medicine
DX: Z12.31 Encounter for screening mammogram for malignant neoplasm of breast; Z78.0 Asymptomatic menopausal state; R92.323 Mammographic fibroglandular density, bilateral breasts
CPT/HCPCS: 77063; 77067; 77080

== ENCOUNTER → 2023-12-24 08:56 | Outpatient (BNVA) | payer SELFPAY ==
[2020-07-03 14:30] VITALS: BP 121/83; BMI 33.6
== END ==
PROVIDERS: PCP Family Medicine; Visit Provider Nurse Practitioner Psychiatric/Mental Health
DX: Z79.899 Other long term (current) drug therapy (principal)
CPT/HCPCS: 80053; 80061; 82306; 82607; 83036; 84443

== ENCOUNTER → 2024-05-03 09:43 | Outpatient (BNVA) | payer MEDICARE, OTHER, SELFPAY ==
[2020-07-03 14:30] VITALS: BP 121/83; BMI 33.6
== END ==
PROVIDERS: PCP Family Medicine; Visit Provider Nurse Practitioner Psychiatric/Mental Health
DX: Z79.899 Other long term (current) drug therapy (principal)
CPT/HCPCS: 80053

== ENCOUNTER → 2024-12-02 13:36 | Outpatient (BNVA) | payer MEDICARE, OTHER, SELFPAY ==
[2020-07-03 14:30] VITALS: BP 121/83; BMI 33.6
== END ==
PROVIDERS: PCP Family Medicine; Visit Provider Family Medicine
DX: R39.9 Unspecified symptoms and signs involving the genitourinary system (principal); E03.9 Hypothyroidism, unspecified; Z13.6 Encounter for screening for cardiovascular disorders; E11.9 Type 2 diabetes mellitus without complications
CPT/HCPCS: 80053; 80061; 81000; 83036; 84439; 84443; 85025

== ENCOUNTER 2024-12-29 13:01 | Emergency (ER) | payer OTHER, MEDICAID, SELFPAY ==
[2020-07-03 14:30] VITALS: BP 121/83; BMI 33.6
[2024-12-29 13:12] VITALS: BP 127/75; PULSE 81; RESP 17; TEMP 36.5; O2SAT 93; BMI 32.0
--- NOTE | 2024-12-29 13:53 | CT_ITS ---
WS: [id number] CT HEAD TECHNIQUE: Noncontrast CT of the head obtained from the skullbase to the vertex. CLINICAL INFORMATION: trauma COMPARISON: 2018 DLP: 1311.[address] scans at [facility] use at least one of these dose optimization techniques: automated exposure control; mA and/or kV adjustment per patient size (includes targeted exams where dose is matched to clinical indication); or iterative reconstruction. FINDINGS: No evidence of intracranial hemorrhage or mass effect. Ventricular system and basal cisterns are patent. Mild small vessel changes with no significant parenchymal volume loss. No extra-axial fluid collections. No evidence of mass or mass effect. Paranasal sinuses and mastoid air cells are well aerated. .Normal visualized soft tissues. CT/CT head wo con* [id number] IMPRESSION: 1. No evidence of intracranial hemorrhage or mass effect. 2. No acute intracranial findings.
--- NOTE | 2024-12-29 13:53 | CT_ITS ---
WS: [id number] CT CERVICAL TRAUMA TECHNIQUE: Noncontrast CT of the cervical spine with coronal and sagittal reformatted images. CLINICAL INFORMATION: trauma COMPARISON: None. DLP: 1311.[address] scans at [facility] use at least one of these dose optimization techniques: automated exposure control; mA and/or kV adjustment per patient size (includes targeted exams where dose is matched to clinical indication); or iterative reconstruction. FINDINGS: Straightening with reversal of the normal cervical lordosis. Normal craniocervical junction. Normal C1-C2 articulation. Dens is normal in appearance. Normal occipital condyles. No high-grade spinal canal narrowing. Normal C1 ring. No evidence of acute fracture or dislocation. Normal prevertebral soft tissues. Mastoids air cells are well aerated. CT/CT cervical spin wo con* [id number] IMPRESSION: No evidence of acute fracture or dislocation.
--- NOTE | 2024-12-29 13:53 | XR_ITS ---
WS: [id number] XR hip RT 2-3V wo/w pel* [id number] REASON FOR EXAM: trauma; one view pelvis too please FINDINGS: The bony pelvis is intact. Superior and inferior pubic ramus unremarkable. There is deformity of the femoral neck and head junction which most likely is osteophytosis of the femoral head. On the CT scan of 06/07/2017 the femoral head and neck show the same configuration as the present examination with mild osteophytosis of the femoral head. No abnormality of the femoral neck or intertrochanteric region or proximal femoral shaft. XR/XR hip RT 2-3V wo/w pel* [id number] IMPRESSION: No definite acute fracture. Configuration of the femoral head/neck as above.
--- NOTE | 2024-12-29 13:54 | ED_ITS ---
HPI - Fall General: Chief Complaint: Fall Stated Complaint: fall-hit back of head Time Seen by Provider: 12/29/24 13:04 Source: patient Mode of arrival: ambulatory Limitations: no limitations History of Present Illness: Patient is a very nice 64-year-old female presents to ED today for evaluation following a fall. Patient states she was carrying a box down a flight of stairs when she accidentally tripped and fell approximately 4 stairs from the bottom. She states she grabbed the handlebar which caused her to then turn around and fall backwards. She states she struck the back of her head. No LOC. Patient states she also fell onto her right hip. She states she was able to hobble back up the stairs and sit in her recliner. She feels like her hip pain and headache acutely worsened thus prompting her medical evaluation. Patient states she was able to ambulate into the emergency department. She states she is feeling nauseous. She is not on anticoagulation. MD complaint: fall Onset (ago): hour(s) Fall from: down stairs (#) Fall witnessed: no Place fall occurred: home Loss of consciousness: None Prolonged down time: no Symptoms prior to fall: none Context: tripped/slipped Location of injury: head Severity: moderate Associated symptoms-after fall: Reports no associated symptoms and headache(s); Denies abdominal pain, chest pain, hematuria, lightheadedness or neck pain Related Data Home Medications ?Medication ?Instructions ?Recorded ?Confirmed cholecalciferol (vitamin D3) 125 125 mcg PO DAILY 04/1712/29/24 mcg (5,000 unit) tablet (Vitamin D3) vitamin C 45 mg-zinc citrate 4 1 tab PO DAILY 12/29/24 12/29/24 mg-elderberry 50 mg chewable tablet (Greysox) Previous Rx's ?Medication ?Instructions ?Recorded hydroxyzine HCl 50 mg tablet 50 mg PO BID PRN anxiety #180 tabs 06/15/24 buspirone 15 mg tablet 15 mg PO BID #180 tabs 10/21 trazodone 50 mg tablet 50 mg PO BEDTIME PRN sleep # 90 tabs 10/21/24 venlafaxine 100 mg tablet 100 mg PO DIRECTED #270 t abs 10/21/24 venlafaxine 75 mg tablet 75 mg PO .2 pm #90 tabs 09/25 04/17 omeprazole 40 mg capsule,delayed 40 mg PO DAILY PRN ac id reflux #90 12/02/24 release caps valacyclovir 1 gram tablet 1,000 mg PO TID #21 tabs (Valtrex) varicella-zoster glycoE [id number] 0.5 ml IM ONCE #1 e a 12/02/24 adj(PF) 50 mcg/0.5 mL IM susp, kit (Shingrix (PF)) levothyroxine 75 mcg tablet 75 mcg PO DAILY #90 tabs 0 12/12/24 hydrocodone 5 mg-acetaminophen 325 1 tab PO Q6H PRN pa in #14 tabs 12/29/24 mg tablet Allergies Allergy/AdvReac Type Severity Reaction Status Date / Time carbamazepine (From Tegretol) Allergy hives Verified 12/29/24 13:17 naproxen Allergy ALGY-Anaphy Verified 12/29/24 13:17 laxis prednisone Allergy ADR-Halluci Verified 12/29/24 13:17 nating risperidone Allergy causes Verified 12/29/24 13:17 hyperactivity Sulfa (Sulfonamide Allergy ALGY-Hives Verified 12/29/24 13:17 Antibiotics) sumatriptan (From Imitrex) Allergy ALGY-Anaphy Verified 12/29/24 13:17 laxis aripiprazole (From Abilify) AdvReac Intermediate rash Verified 12/29/24 13:17 Review of Systems Eyes: Denies: change in vision, blurry vision, photophobia, eye discharge, floaters or seeing flashes ENMT: Denies: throat pain, odynophagia, ear or mastoid pain, ear discharge, nasal discharge, epistaxis or sinus pain Card: Denies: chest pain, palpitations, lightheadedness, syncope or pre- syncope Resp: Denies: dyspnea or pain on inspiration GI: Reports: nausea; Denies: abdominal pain or vomiting : Denies: flank pain or hematuria Musc: Reports: joint pain (R hip); Denies: neck pain, back pain or extremity pain Neuro: Reports: headache(s); Denies: numbness in extremities, weakness in extremities, sensory changes or dizziness PFSH ED PFSH: Medical History 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 Patient has a strong personality disorder/attention seeking component to her presentation making it difficult to separate from a true mood disorder. Generalized anxiety disorder Surgical History History of partial hysterectomy Hx of breast reduction, elective History of cholecystectomy History of appendectomy H/O rhinoplasty Family History Father Hypertension Hyperlipidemia Cancer Sister Hyperlipidemia Grandmother Cancer Grandfather Cancer Social History Smoking and tobacco/nicotine status: never used tobacco/nicotine Alcohol intake: unknown Substance/Drug Use: never Marital status: Current gender identity: Female Physical Exam 2 Const: COMMON NORMALS: no acute distress, average body habitus, patient oriented x3, no limitations, healthy appearing, alert and well nourished GENERAL APPEARANCE: cooperative ORIENTATION/CONSCIOUSNESS: Yes awake, Yes oriented to person, Yes oriented to place and Yes oriented to time HENMT: COMMON NORMALS: normocephalic, atraumatic and TM's normal bilaterally HEAD & SCALP: normal to inspection, normocephalic and atraumatic; no Blevins's sign, no hematoma and no raccoon eyes FACE & SINUS: normal facial exam TYMPANIC MEMBRANE: TM's normal bilaterally MOUTH: other (no intraoral injuries noted) Eye: COMMON NORMALS: Equal, round and reactive pupils present and EOMs intact bilaterally GENERAL EYE: appearance normal, both eyes and all related structures and normal light reflex PUPIL: Yes Equal, round and reactive pupi ls present DIRECT OPHTHALMOSCOPY: Yes normal light reflex Neck/C-Spine: COMMON NORMALS: full ROM GENERAL: Yes normal visual inspection CERVICAL SPINE: Yes cervical ROM normal, Yes pain with cervical ROM, No Cervical spine tenderness, No step off deformity and Yes Paracervical muscle tenderness right Chest: COMMONS NORMALS: normal inspection of the chest and normal palpation of entire chest wall Resp: COMMON NORMALS: normal respiratory effort and clear to auscultation bilaterally AUSCULTATION: clear to auscultation bilaterally Cardio: COMMON NORMALS: regular rate and regular rhythm RATE: regular rate RHYTHM: regular rhythm GI: COMMON NORMALS: Normal to inspection, nondistended, normoactive bowel sounds present, Soft to palpation, non-tender, No hepatosplenomegaly present and no masses INSPECTION: Yes normal to inspection and No abdominal wall ecchymosis AUSCULTATION: Yes normoactive bowel sounds PALPATION: Yes Soft to palpation and Yes No hepatosplenomegaly present Back/Pelvis: COMMON NORMALS: thoracic and lumbar spine normal to inspection, no thoracic nor lumbar tenderness and thoraco-lumbar ROM normal Extremity: COMMON NORMALS: normal to inspection and capillary refill normal GENERAL: Yes normal exam except as noted RIGHT LOWER EXTREMITY: Yes hip joint Right hip: Yes inspection (normal gross inspection; no shortening or rotation), Yes palpation (TTP mainly lateral R hip), Yes ROM (limited due to pain) and Yes neurovascular exam (normal) Neuro: ANJALI COMA SCALE: document [facility] findings [place] coma scale eye opening: Spontaneous [place] coma scale verbal response: Orientated Anjali coma scale motor response: Obey commands [place] coma scale total score: 15 COMMON NORMALS: patient oriented x3, CN's II-XII intact bilaterally, moves all extremities, no focal motor deficits, no sensory deficits noted and gait normal SENSORIUM/ORIENTATION: Yes alert, Yes oriented to person, Yes oriented to place and Yes oriented to time SPEECH: speech normal GAIT: Yes Normal gait present Skin: COMMON NORMALS: no rashes or lesions noted GENERAL SKIN EXAM: no rashes or lesions noted TRAUMA: no lacerations or abrasions Course Vital Signs: Vital signs: Vital Signs Temperature 97.7 F 12/29/24 13:12 Pulse Rate 71 12/29/24 15:00 Respiratory Rate 16 12/29/24 14:07 Blood Pressure 128/84 12/29/24 15:00 Pulse Oximetry 92 12/29/24 15:00 Oxygen Delivery Me thod Room Air 12/29/24 15:00 MDM - Fall Medical Decision Making CT scans of her head and cervical spine are unremarkable. No acute fractures to her right hip or pelvis. She was ambulatory here without assistance or difficulty. Patient will be allowed discharge with return precautions. Follow- up with primary care next week for reevaluation. Medical Records I reviewed the patient's medical records. Lab Data Radiology Impressions Cervical Spine CT 12/29/24 13:53 IMPRESSION: No evidence of acute fracture or dislocation. Head CT 12/29/24 13:53 IMPRESSION: 1. No evidence of intracranial hemorrhage or mass effect. 2. No acute intracranial findings. Hip/Pelvis X-Ray 12/29/24 13:53 IMPRESSION: No definite acute fracture. Configuration of the femoral head/neck as above. All radiology interpretation(s) finalized by discharge Discharge Plan Discharge Patient Disposition: Home Clinical Impression: Minor closed head injury Fall down stairs Qualifiers: Encounter type: initial encounter Qualified Code(s): W10.8XXA - Fall (on) (from) other stairs and steps, initial encounter Contusion of right hip Qualifiers: Encounter type: initial encounter Qualified Code(s): S70.01XA - Contusion of right hip, initial encounter Condition: Stable Prescriptions: New hydrocodone-acetaminophen 5-325 mg tablet 1 tab PO Q6H PRN (Reason: pain) Qty: 14 0RF No Action venlafaxine 100 mg tablet 100 mg PO DIRECTED Qty: 270 2RF Rx Instructions: Take two tablets at 8 am and one tablet at 2 pm with 75 mg tab. trazodone 50 mg tablet 50 mg PO BEDTIME PRN (Reason: sleep) Qty: 90 2RF Rx Instructions: May take one tablet at bedtime as needed for sleep buspirone 15 mg tablet 15 mg PO BID Qty: 180 2RF Rx Instructions: Take one tablet twice per day venlafaxine 75 mg tablet 75 mg PO .2 pm Qty: 90 2RF Rx Instructions: Take one tablet at 2 pm with 100 mg tablet omeprazole 40 mg capsule,delayed release(DR/EC) 40 mg PO DAILY PRN (Reason: acid reflux) Qty: 90 0RF valacyclovir [Valtrex] 1 gram tablet 1,000 mg PO TID Qty: 21 3RF Shingrix (PF) 50 mcg/0.5 mL suspension for reconstitution 0.5 ml IM ONCE Qty: 1 0RF hydroxyzine HCl 50 mg tablet 50 mg PO BID PRN (Reason: anxiety) Qty: 180 2RF Rx Instructions: May take one tablet twice per day as needed for anxiety levothyroxine 75 mcg tablet 75 mcg PO DAILY Qty: 90 0RF Rx Instructions: Needs appointment cholecalciferol (vitamin D3) [Vitamin D3] 125 mcg (5,000 unit) Tablet 125 mcg PO DAILY Greysox 45-4-50 mg Tablet,Chewable 1 tab PO DAILY Discharge Orders: Discharge ED (Routine); Ordered 12/29/24 Ordered By: Judith Cassidy Referrals: Nasim Lion MD [Primary Care Provider, [facility]] Activity Restrictions/Additional Instructions: As we discussed, CT imaging of your head and cervical spine was unremarkable. X-ray of your right hip and pelvis was negative for acute fracture. You were ambulatory here in the emergency department without difficulty or assistance. Please follow-up with primary care next week if symptoms are not improving. You may use [id number] analgesics to help with discomfort as well as ice and heat. You may use the prescribed pain medication as needed for severe discomfort. You may return to the emergency department at anytime for any further concerns or worsening pain. Print Language: Yemeni Coding Level of Care Code ED Certified Orthotic Fitter for Justin Gutierrez
[2024-12-29 14:01] VITALS: BP 126/57; PULSE 72; O2SAT 96
[2024-12-29 14:07] VITALS: RESP 16; O2SAT 99
[2024-12-29] MEDS: morphine 4 mg/mL SDV 1 mL IVP (14:07)
[2024-12-29] MEDS: ondansetron 2 mg/ML SDV 2 mL 4 MG IVP (14:07)
[2024-12-29 15:00] VITALS: BP 128/84; PULSE 71; O2SAT 92
--- NOTE | 2024-12-29 15:33 | PC.NURSE ---
pt assisted up to bedside, and ambulated out into hallway, down keating to nurses station and back to room without any assistance. tolerated well.
[2024-12-29 16:01] VITALS: BP 119/68; PULSE 72; O2SAT 97
== END 2024-12-29 16:02 | disposition home or self-care (01) ==
PROVIDERS: Emergency Provider Physician Assistant; PCP Family Medicine
DX: S09.8XXA Other specified injuries of head, initial encounter (principal); S70.01XA Contusion of right hip, initial encounter; W10.8XXA Fall (on) (from) other stairs and steps, initial encounter
CPT/HCPCS: 70450; 72125; 73502; 96374; 96375; 99285; J2270; J2405

== ENCOUNTER → 2025-06-19 14:44 | Outpatient (BNVA) | payer MEDICARE, MEDICAID, OTHER, SELFPAY ==
[2020-07-03 14:30] VITALS: BP 121/83; BMI 33.6
== END ==
PROVIDERS: PCP Family Medicine; Visit Provider Nurse Practitioner Psychiatric/Mental Health
DX: Z79.899 Other long term (current) drug therapy (principal); Z03.89 Encounter for observation for other suspected diseases and conditions ruled out
CPT/HCPCS: 80053; 81001; 82306; 85025; 87086